=== PATIENT | female | born 1985 | race Caucasian/White ===

== ENCOUNTER → 2016-06-18 | Outpatient (CLI) | payer OTHER ==
--- NOTE | 2016-06-18 12:43 | EKG ---
[facility] [address] [place] [address] Test Date: 2016-06-18 Test Time: 12:43:20 Pat Name: GEOVANNA FELIX Department: Room: Gender: F [employer]: GOPI : 1985 Requested By: QAMAR POLLACK Order Number: [id number] Reading MD: Keith Post Measurements Intervals [place] Rate: 78 P: 38 W[place]: 178 QRS: 70 QRSD: 76 T: 18 QT: 362 QTc: 416 Interpretive Statements SINUS RHYTHM Electronically Signed On 06-18-2016 13:06:14 [employer] by Keith Post
== END | disposition home or self-care (01) ==
LOC: EKG 12:25
PROVIDERS: ATTEND Obstetrics & Gynecology
DX: R00.2 Palpitations (principal)
CPT/HCPCS: 93005

== ENCOUNTER → 2016-07-17 | Outpatient (CLI) | payer OTHER ==
--- NOTE | 2016-07-18 11:16 | CARD ---
APPROVED REPORT EXAM: Two-dimensional and M-mode echocardiogram with Doppler and color Doppler. Other Information Quality : GoodHR: 81bpm Rhythm : NSR INDICATION Palpitations Dyspnea 2D DIMENSIONS RVDd3.2 (2.9-3.5cm)Left Atrium(2D)3.2 (1.6-4.0cm) IVSd0.8 (0.7-1.1cm)Aortic Root(2D)2.4 (2.0-3.7cm) LVDd5.0 (3.9-5.9cm)LVOT Diameter2.0 (1.8-2.4cm) PWd0.9 (0.7-1.1cm)LVDs3.5 (2.5-4.0cm) FS (%) 30.7 %SV69.0 ml LVEF(%)58.1 (>50%) Aortic Valve AoV Peak Lan.141.0cm/sAoV VTI26.9cm AO Peak GR.7.9mmHgLVOT Peak Lan.92.7cm/s LVOT VTI 19.29cmAO Mean GR.5mmHg DEE (VMAX)2.93bs2OAK (VTI)2.31cm2 Mitral Valve MV E Fahskopd87.2cm/sMV DECEL GLUA432oi MV A Asefchaq19.8cm/sMV E Mean Gr.2mmHg MV RHN55vpW/A Ratio1.8 MV A Hvsjmgvb279ccEPL (PHT)3.36cm2 TDI E/Lateral E'4.9E/Medial E'7.4 Pulmonary Valve PV Peak Lylkigmf140.7cm/sPV Peak Grad.8mmHg RVOT VTI15.0cm Tricuspid Valve TR P. Wbmqnwdk700ei/sRAP HXNJEWYL3reSg TR Peak Gr.09ulEfUTYZ86vzVk Pulmonary Vein S1 Aujuzusy91.2cm/sD2 Coxxrefc98.6cm/s PVa irkbfmtv010wggk LEFT VENTRICLE The left ventricle is normal size. There is normal left ventricular wall thickness. Left ventricle sy stolic function is normal. The Ejection Fraction is 55-60%. There is normal LV segmental wall motion. The left ventricular diastolic function and filling is normal . RIGHT VENTRICLE The right ventricle is normal size. There is normal right ventricular wall thickness. The right ventr icular systolic function is normal. ATRIA The left atrium size is normal. The right atrium size is normal. The interatrial septum is intact wit h no evidence for an atrial septal defect or patent foramen ovale as noted on 2-D or Doppler imaging. AORTIC VALVE The aortic valve is normal in structure and function. The aortic valve is trileaflet. Doppler and Col or Flow revealed no significant aortic regurgitation. There is no significant aortic valvular stenosi s. MITRAL VALVE The mitral valve is normal in structure and function. There is no evidence of mitral valve prolapse. There is no mitral valve stenosis. Doppler and Color Flow revealed trace mitral regurgitation. TRICUSPID VALVE The tricuspid valve is normal in structure. Doppler and Color Flow revealed mild tricuspid regurgitat ion. There is no pulmonary hypertension. The PA pressure was estimated at 29 mmHg. There is no tricus pid valve stenosis. PULMONIC VALVE The pulmonary valve is normal in structure. Doppler and Color Flow revealed trace pulmonic valvular r egurgitation. There is no pulmonic valvular stenosis. GREAT VESSELS The aortic root is normal in size. The ascending aorta is normal in size. Normal pulmonary venous kely w (Doppler). The IVC is dilated and collapses >50% with inspiration. PERICARDIAL EFFUSION There is no evidence of significant pericardial effusion. Critical Notification Critical Value: No <Conclusion> The left ventricle is normal size. There is normal left ventricular wall thickness. Left ventricle systolic function is normal. The Ejection Fraction is 55-60%. The left ventricular diastolic function and filling is normal . There is no evidence of significant pericardial effusion. There is no mitral valve stenosis. Doppler and Color Flow revealed trace mitral regurgitation. The left atrium is of a normal size The righr ventricle is of a normal size with normal systolic function Doppler and Color Flow revealed mild tricuspid regurgitation. There is no pulmonary hypertension. The PA pressure was estimated at 29 mmHg. Doppler and Color Flow revealed trace pulmonic valvular regurgitation.
--- NOTE | 2016-07-18 12:48 | EKG ---
[facility] [address] [place] [address] Test Date: 2016-07-18 Test Time: 10:46:00 Pat Name: GEOVANNA FELIX Department: Room: Gender: F [employer]: : 1985 Requested By: DAISY FLOREZ Order Number: [id number] Reading MD: Interpretive Statements
== END | disposition home or self-care (01) ==
LOC: ECHO 09:38
PROVIDERS: ATTEND Internal Medicine Cardiovascular Disease
DX: R07.9 Chest pain, unspecified (principal); R00.2 Palpitations; R06.02 Shortness of breath; Z3A.15 15 weeks gestation of pregnancy
CPT/HCPCS: 93225; 93226; 93306

== ENCOUNTER → 2018-12-14 | Outpatient (CLI) | payer OTHER ==
--- NOTE | 2018-12-15 08:33 | RAD ---
INDICATION: 32 year-old female presents for imaging evaluation of a palpable laterality in the left breast TECHNIQUE: Targeted high resolution sonography of the region of clinical concern was performed in the upper outer left breast COMPARISON: None FINDINGS: Sonographic evaluation of the area of focal demonstrates unremarkable fibroglandular tissue without evidence for suspicious cystic or solid mass. IMPRESSION: No sonographic evidence of malignancy. RECOMMENDATION: The patient's focal breast complaint should be further managed clinically. There is interval enlargement, imaging and be performed again. BI-RADS 1: Negative Electronically signed by: Jeremie George MD (12/15/2018 8:30 AM) [facility]
== END | disposition home or self-care (01) ==
LOC: US 11:22
PROVIDERS: ATTEND Obstetrics & Gynecology
DX: N63.20 Unspecified lump in the left breast, unspecified quadrant (principal)
CPT/HCPCS: 76641